=== PATIENT | born 1955 | race Caucasian/White ===

== ENCOUNTER → 2024-05-28 08:23 | Outpatient (BNVA) | payer MEDICARE, SELFPAY | PROVIDERS: PCP Nurse Practitioner Family; Referring Provider Nurse Practitioner Family; Visit Provider Internal Medicine | DX: E06.3 Autoimmune thyroiditis (principal); M32.9 Systemic lupus erythematosus, unspecified; R53.83 Other fatigue; I25.10 Atherosclerotic heart disease of native coronary artery without angina pectoris | CPT/HCPCS: 36415; 82533; 84439; 84443; 99204 ==

== ENCOUNTER 2024-05-31 13:49 | Outpatient (CLI) | payer MEDICARE, SELFPAY ==
--- NOTE | 2024-05-31 14:00 | US_ITS ---
WS: [id number] THYROID ULTRASOUND HISTORY: r/o foreign body in throat COMPARISON: None available. Right lobe: 1.3 cm x 2.0 cm x 3.9 cm (w x ap x l). Volume: 4.8 cm3. Normal sized gland. Very heterogeneous gland with pseudo nodules and fibrous septa. There is no discr ete mass. No increased vascularity. Left lobe: 1.3 cm x 1.2 cm x 3.3 cm (w x ap x l). Volume: 2.5 cm3. Small caliber thyroid with heterogeneity. Small pseudo nodules and fibrous septa. No mass. No increas ed vascularity. Isthmus: 0.2 cm. US/US thyroid [id number] IMPRESSION: Coarse echotexture throughout the thyroid. Most significant for sequela from Christy shimoto's thyroiditis.
[2024-05-31 15:00] LABS: Free T4 Free Thyroxine 1.78 ng/dL (0.82-1.77)
== END 2024-05-31 13:50 | disposition home or self-care (01) ==
PROVIDERS: PCP Nurse Practitioner Family; Visit Provider Internal Medicine
DX: E06.3 Autoimmune thyroiditis (principal)
CPT/HCPCS: 36415; 76536; 84439

== ENCOUNTER 2024-06-28 12:32 | Outpatient (CLI) | payer MEDICARE, SELFPAY ==
[2024-06-28 13:19] LABS: Free T4 Free Thyroxine 1.73 ng/dL (0.82-1.77)
== END 2024-06-28 12:33 | disposition home or self-care (01) ==
PROVIDERS: PCP Nurse Practitioner Family; Visit Provider Internal Medicine
DX: E06.3 Autoimmune thyroiditis (principal)
CPT/HCPCS: 36415; 84439

== ENCOUNTER → 2025-01-01 08:08 | Outpatient (BNVA) | payer MEDICARE, SELFPAY | PROVIDERS: PCP Nurse Practitioner Family; Visit Provider Internal Medicine | DX: E06.3 Autoimmune thyroiditis (principal); M32.9 Systemic lupus erythematosus, unspecified | CPT/HCPCS: 99214 ==

== ENCOUNTER → 2025-03-18 13:44 | Outpatient (BNVA) | payer MEDICARE, SELFPAY | PROVIDERS: PCP Nurse Practitioner Family; Visit Provider Internal Medicine Endocrinology, Diabetes & Metabolism | DX: E06.3 Autoimmune thyroiditis (principal); M32.9 Systemic lupus erythematosus, unspecified; R53.83 Other fatigue; I25.10 Atherosclerotic heart disease of native coronary artery without angina pectoris | CPT/HCPCS: 99214 ==

== ENCOUNTER → 2025-03-25 09:19 | Outpatient (BNVA) | payer MEDICARE, SELFPAY | PROVIDERS: PCP Nurse Practitioner Family; Visit Provider Internal Medicine | DX: E06.3 Autoimmune thyroiditis (principal) | CPT/HCPCS: 84439; 84443 ==